=== PATIENT | female | born 1980 | race Two or more races ===

== ENCOUNTER 2019-12-08 06:38 | Outpatient (CLI) | payer OTHER | END 2019-12-08 15:00 | disposition home or self-care (01) | LOC: LAB 06:38 | PROVIDERS: ATTEND Surgery | DX: E11.9 Type 2 diabetes mellitus without complications (principal); D46.4 Refractory anemia, unspecified; E03.8 Other specified hypothyroidism; E54 Ascorbic acid deficiency; E55.9 Vitamin D deficiency, unspecified; D51.8 Other vitamin B12 deficiency anemias ==

== ENCOUNTER 2020-01-05 09:38 | Emergency (ER) | payer OTHER ==
[~2020-01-05] VITALS: Ht 160 cm; Wt 81.6 kg
[2020-01-05] MEDS ORDERED: KETO10TA2 PO (13:01)
== END 2020-01-05 13:00 | disposition home or self-care (01) ==
LOC: ER 09:38
DX: S90.02XA Contusion of left ankle, initial encounter (principal); W18.39XA Other fall on same level, initial encounter; Y93.K1 Activity, walking an animal; Y92.89 Other specified places as the place of occurrence of the external cause; Y99.8 Other external cause status

== ENCOUNTER → 2020-04-13 08:34 | Outpatient (CLI) | payer OTHER ==
[~2020-04-13 08:34] MED LIST: KETO10TA2 PO
== END | disposition home or self-care (01) ==
LOC: LAB 08:34
DX: N39.0 Urinary tract infection, site not specified (principal); E78.49 Other hyperlipidemia; E55.9 Vitamin D deficiency, unspecified

== ENCOUNTER 2020-08-30 13:07 | Outpatient (CLI) | payer OTHER | END 2020-08-30 13:37 | disposition home or self-care (01) | LOC: RAD 13:07 | PROVIDERS: ATTEND Specialist | DX: M25.572 Pain in left ankle and joints of left foot (principal) ==

== ENCOUNTER 2020-10-11 07:42 | Outpatient (CLI) | payer OTHER | END 2020-10-11 08:00 | disposition home or self-care (01) | LOC: MAMO-SONO 07:42 | PROVIDERS: ATTEND Obstetrics & Gynecology | DX: N60.11 Diffuse cystic mastopathy of right breast (principal); N60.12 Diffuse cystic mastopathy of left breast; R10.2 Pelvic and perineal pain ==

== ENCOUNTER → 2020-10-11 09:46 | Outpatient (CLI) | payer OTHER | END | disposition home or self-care (01) | LOC: LAB 09:46 | PROVIDERS: ATTEND Obstetrics & Gynecology | DX: D64.89 Other specified anemias (principal); Z12.11 Encounter for screening for malignant neoplasm of colon; E03.8 Other specified hypothyroidism; N95.1 Menopausal and female climacteric states; I10 Essential (primary) hypertension; C51.8 Malignant neoplasm of overlapping sites of vulva; N30.00 Acute cystitis without hematuria; E83.51 Hypocalcemia; A64 Unspecified sexually transmitted disease; R97.8 Other abnormal tumor markers; R79.89 Other specified abnormal findings of blood chemistry; A60.9 Anogenital herpesviral infection, unspecified ==

== ENCOUNTER 2021-11-10 10:41 | Outpatient (CLI) | payer OTHER | END 2021-11-10 10:46 | disposition home or self-care (01) | LOC: RAD 10:41 | DX: M60.89 Other myositis, multiple sites (principal); M54.12 Radiculopathy, cervical region; M54.14 Radiculopathy, thoracic region ==

== ENCOUNTER 2022-06-20 07:06 | Outpatient (CLI) | payer OTHER | END 2022-06-20 07:16 | disposition home or self-care (01) | LOC: RAD 07:06 | DX: M25.561 Pain in right knee (principal) ==

== ENCOUNTER 2022-08-23 15:40 | Outpatient (CLI) | payer OTHER | END 2022-08-23 15:45 | disposition home or self-care (01) | LOC: RAD 15:40 | DX: M17.0 Bilateral primary osteoarthritis of knee (principal) ==

== ENCOUNTER → 2022-08-28 07:12 | Outpatient (CLI) | payer OTHER | END | disposition home or self-care (01) | LOC: LAB 07:12 | DX: B33.8 Other specified viral diseases (principal); N39.0 Urinary tract infection, site not specified; E78.5 Hyperlipidemia, unspecified; Z13.220 Encounter for screening for lipoid disorders; Z13.1 Encounter for screening for diabetes mellitus; Z13.9 Encounter for screening, unspecified; E55.9 Vitamin D deficiency, unspecified; Z12.11 Encounter for screening for malignant neoplasm of colon ==